=== PATIENT | male | born 1940 | race Caucasian/White ===

== ENCOUNTER → 2016-12-08 | Outpatient (CLI) | payer OTHER ==
[~2016-12-08] MED LIST: ASCA500 PO; CALC600T9 PO; FINA5TAB4 PO; GABA-113 PO; GATI0.5S OP; MULT-506 PO; PRED1SUS3; TAMS0.4C59 PO
== END | disposition home or self-care (01) ==
LOC: C.LABSPEC 15:08
PROVIDERS: ATTEND Internal Medicine
DX: Z12.11 Encounter for screening for malignant neoplasm of colon (principal)

== ENCOUNTER 2022-06-18 07:41 | Observation (INO) ==
--- NOTE | 2022-05-18 12:23 | PAT Medication Instructions ---
Medication Instructions Date of Service May 18, 2022 Home Medications ascorbic acid (vitamin C) 500 mg tablet 500 mg PO HS calcium carbonate 390 mg calcium (1,000 mg) tablet (Coral Calcium) 390 mg PO HS magnesium aspartate HCl 61 mg (615 mg) tablet,delayed release 61 mg PO HS magnesium oxide 500 mg capsule 500 mg PO HS multivitamin (Daily Multi-Vitamin tablet) 1 tab PO HS finasteride 5 mg tablet 5 mg PO HS omeprazole 20 mg tablet,delayed release 20 mg PO HS tadalafil 5 mg tablet (Cialis) 5 mg PO HS Take evening before surgery ascorbic acid (vitamin C) 500 mg tablet 500 mg PO HS calcium carbonate 390 mg calcium (1,000 mg) tablet (Coral Calcium) 390 mg PO HS magnesium aspartate HCl 61 mg (615 mg) tablet,delayed release 61 mg PO HS magnesium oxide 500 mg capsule 500 mg PO HS multivitamin (Daily Multi-Vitamin tablet) 1 tab PO HS finasteride 5 mg tablet 5 mg PO HS omeprazole 20 mg tablet,delayed release 20 mg PO HS tadalafil 5 mg tablet (Cialis) 5 mg PO HS OTHERWISE NOTHING TO EAT OR DRINK AFTER MIDNIGHT Other Notes If you have any questions please call us at [phone] or [phone] or [phone] or [phone]
--- NOTE | 2022-05-22 10:56 | Anesthesiology Consultation ---
Date of Service May 22, 2022 Assessment & Plan (1) Encounter for pre-operative examination: Plan - will attempt to obtain any available records from 11/2013 lung surgery at [facility] including post-op chest CT. - s/p left pneumonectomy: Pre-op CXR 05/22/22: Volume loss with complete opacification of left hemithorax redemonstrated compatible with prior pneumonectomy. Unchanged mild linear scarring of the right upper lobe. Leftward midline shift of the mediastinal structures. Compensatory hyperinflation of the right lung. Pt reports surgery 11/[address] [facility]. Leblanc advised obtaining records including post-op chest CT if available as this information will assist assigned anesthesiologist DOS to evaluate if pt can receive a peripheral nerve block for shoulder surgery or if this will need to be avoided from pulmonary surgery history - Outpatient joint pathway: Per surgeon and patient, plan for outpatient joint program. Case discussed in detail with Dr. Leblanc who advised patient is not an acceptable candidate for Same Day Joint Program from anesthesia perspective. This was discussed with pt and his at [facility] appt. They verbalized understanding, Bibi with surgeon's office made aware. Booking changed to overnight. Chart Review Chart Review: Pending: Refer to Additional Notes / Consult section and Patient seen in Pre Admission Testing Teaching & Discussion Pre-Anesthesia Teaching/Discussion Notes: Instructed NPO after midnight before surgery, except medications with 15 cc of water. Medication instructions provided according to the [facility] guidelines. History Surgery Operation Date: 06/18/22 08:50 Proposed Procedures p Right Reverse Total Shoulder Arthroplasty - Abdias Mccann DO Height/Weight Height: 5 ft 2 in Weight: 59.2 kg Allergies Allergy/AdvReac Type Severity Reaction Status Date / Time No Known Allergies Allergy Unknown Verified 05/16/22 14:12 Medications Home Medications Medication Instructions Recorded Confirmed Last Taken ascorbic acid (vitamin C) 500 mg 500 mg PO HS 11/12/19 05/16/22 Unknown tablet calcium carbonate 390 mg calcium 390 mg PO HS 11/12/19 05/16/22 Unknown (1,000 mg) tablet (Coral Calcium) magnesium aspartate HCl 61 mg (615 61 mg PO HS 11/12/19 05/16/22 Unknown mg) tablet,delayed release magnesium oxide 500 mg capsule 500 mg PO HS 11/12/19 05/16/22 Unknown multivitamin (Daily Multi-Vitamin 1 tab PO HS 11/12/19 05/16/22 Unknown tablet) finasteride 5 mg tablet 5 mg PO HS 05/16/22 05/16/22 Unknown omeprazole 20 mg tablet,delayed 20 mg PO HS 05/16/22 05/16/22 Unknown release tadalafil 5 mg tablet (Cialis) 5 mg PO HS 05/16/22 05/16/22 Unknown Past Medical History Medical History (Updated 05/22/22 @ 11:27 by Lauren Odell PA-C) GERD (gastroesophageal reflux disease) controlled, stable per pt History of lung cancer s/p left pneumonectomy Prostatitis hx Patient denies h/o stroke, seizures, heart attack, heart failure, DM, HTN, or blood clots. Exercise / Class Metabolic Activity II 4-5 Yardwork/Stairs/Walk up hill (denies CP or SOB with 1 FOS) Past Family History Family History Brother Myocardial infarction Mother Liver cancer Father Prostate cancer Past Surgical History Surgical History History of lung surgery lt lung removed History of shoulder surgery lt. History of total hip replacement rt. Hx of cataract extraction bilat. Hx of colonoscopy Past Anesthesia History No Hx of Anesthesia Complications and No Family Hx of Anesthesia Complications History of PONV No Hx of PONV and No Hx of Motion Sickness Social History Smoking Status: Former smoker Do You Dip or Chew Tobacco: No Smoking End Date: 40 years ago Hx Alcohol Use: Yes Alcohol type: beer alcohol intake frequency: a few times a week Hx Substance Use: No substance use type: does not use Review of Systems Snoring, denies witnessed apneas. Patient denies chest pain, shortness of breath, dyspnea on exertion, fever, chills, cough, wheezing, or palpitations. Physical Exam Vital Signs Vitals BP 132/70 P 68 TEMP 98.4 SP02 98% on RA RESP 18 Physical Full cervical extension range of motion without pain TMD 3.5 finger breadths Mallampati Score 1 Dentition: intact, removable partial plate-upper; denies chipped or loose teeth, caps/crowns Lungs: normal respiratory effort. Clear throughout to auscultation, no adventitious breath sounds on right side (pt s/p left pneumonectomy) Cardiac: regular rate and rhythm, no murmurs noted Carotid arteries: negative bruit bilat Lab Results Anesthesia Preop Results Results Anesthesia Widget: WBC 5.05 K/ul (4.8-10.8) 05/22/22 Hgb 12.7 g/dl (14.0-18.0) L 05/22/22 Hct 37.1 % (40.1-51.0) L 05/22/22 Plt 230 K/uL (130-400) 05/22/22 Na 140 mmol/L (136-145) 05/22/22 K 4.1 mmol/L (3.5-5.1) 05/22/22 Cl 104 mmol/L (98-107) 05/22/22 CO2 30 mmol/L (21-32) 05/22/22 BUN 10 mg/dl (6-23) 05/22/22 Creat 0.62 mg/dl (0.6-1.4) 05/22/22 Glucose Level 86 mg/dl (70-99(Fasting)) 05/22/22 PT 11.2 Seconds (9.0-12.0) 05/22/22 PTT 28.6 Seconds (21.0-31.0) 05/22/22 INR 1.1 (0.9-1.1) 05/22/22 Blood Type A Positive 05/22/22 Antibody Screen NEGATIVE 05/22/22 Testing Laboratory Results Mild anemia H&H . No previous comparison. Discussed in detail with Dr. Foss who advised pt did not need further evaluation or testing prior to surgery from his standpoint. Bibi with surgeon's office made aware. Electrocardiogram Date: 05/22/22 NSR, rate 62 bpm Rightward axis Chest X-Ray Date: 05/22/22 Volume loss with complete opacification of left hemithorax redemonstrated compatible with prior pneumonectomy. Unchanged mild linear scarring of the right upper lobe. Leftward midline shift of the mediastinal structures. Compensatory hyperinflation of the right lung. No pneumothorax, large pleural effusion or airspace consolidation typical for pneumonia. Degenerative changes of the shoulders and spine. Chronic left rib deformities again noted. IMPRESSION: 1. No acute processes of the chest. 2. Prior left-sided pneumonectomy with compensatory hyperinflation of the right lung. COVID-19 Risk Screen Screening Information COVID-19 Screen Date: 05/22/22 Exposure 21 Days Family/Household +COVID Last 21 Days: No Exposure 10 Days Any COVID Exposure Last 10 Days: No Symptoms Last 10 Days Experienced COVID Sx Last 10 Days: No + COVID 0-90 Days COVID + in Last 0-90 Days: No
[~2022-06-18 07:41] MED LIST changes: +ACETAMINOPHEN 500 MG TAB PO SCH; -ASCA500 PO; +BUPIVACAINE 0.5 % 5 MG/1 ML PF 10ML VIAL ONE; -CALC600T9 PO; +FAMOTIDINE 20 MG TAB PO SCH; -FINA5TAB4 PO; -GABA-113 PO; +GABAPENTIN 300 MG CAP PO SCH; -GATI0.5S OP; +LR 15ML/HR IV SCH; +LR 60ML/HR IV SCH; -MULT-506 PO; +ORTHO JOINT MIX INFIL SCH; -PRED1SUS3; -TAMS0.4C59 PO; +TRANEXAMIC ACID 1,000 MG **IV Intra-op IV SCH; +TRANEXAMIC ACID 1,000 MG **IV Pre-op IV SCH; +ceFAZolin 2000MG 2,000 MG/15 ML SYR IV SCH; +dexAMETHasone 4 MG TAB PO SCH
[2022-06-18] MEDS ORDERED: MIDAZOLAM HCL 1 MG/ML 2ML VIAL ONE (08:54)
[2022-06-18] MEDS ORDERED: fentaNYL citrate 100 MCG/2 ML VIAL ONE ×2 (08:55→12:32)
[2022-06-18] MEDS ORDERED: ROCURONIUM BROMIDE 10 MG/ML 5 ML VIAL IV ONE (08:57)
[2022-06-18] MEDS ORDERED: ONDANSETRON INJ 2 MG/ML 2 ML VIAL ONE (08:57)
[2022-06-18] MEDS ORDERED: PROPOFOL IV EMULSION 10 MG/ML 20 ML VIAL IV ONE (08:57)
[2022-06-18] MEDS ORDERED: LIDOCAINE 2% 20 MG/ML 5 ML SYR IV ONE (08:58)
--- NOTE | 2022-06-18 09:49 | History & Physical Bridge Note ---
Date of Service June 18, 2022 History & Physical Bridge Note I have examined the patient, reviewed the History & Physical and in the interval since the performance of the History & Physical I have noted the following changes of clinical significance: no changes noted
[2022-06-18] MEDS ORDERED: ORTHO JOINT ANESTHETIC ONE (10:12)
--- NOTE | 2022-06-18 12:07 | Operative Report ---
PG Post Operative Report Pre & Post Diagnosis Operation Date: 06/18/22 10:30 Pre-Op Diagnosis: Cuff tear arthropathy of the right shoulder Post-Op Diagnosis: Cuff tear arthropathy of the right shoulder I identified the patient and participated in the time-out.: Yes Procedure Operation Date: 06/18/22 10:30 Actual Procedures p Right Reverse Total Shoulder Arthroplasty(Right) - Abdias Mccann DO Surgeon Abdias Mccann DO Sales Clerk Supervisor Ruiz Giang PA-C Estimated Blood Loss 150 Findings Consistent with Post-Op Diagnosis Specimens Right humeral head Description of Procedure Implants used: I used a Biomet Comprehensive reverse total shoulder arthroplasty system with a size 14 press fit micro humeral stem, a +3 offset humeral tray and a standard humeral bearing, a 25 mm small augment baseplate with a 6.5 mm central screw and superior and inferior locking screws, and a size 36 mm eccentric glenosphere. Jr arrived at [facility] for the above procedure. He was seen in the preoperative holding area and the operative extremity was identified and signed. He was given a preoperative antibiotic, TXA, and an interscalene nerve block. He was taken back to the operating room, laid on table in supine position, and put under general anesthesia. He was then put into the beachchair position. The shoulder was then prepped and draped in sterile fashion. A timeout was done and the patient and the operative extremity was properly identified. A deltopectoral approach was used. Dissection was taken down through the fascia and the deltoid was retracted laterally and the conjoined tendon was retracted medially. The anterior shoulder was exposed. The biceps tendon was chronically torn. The subscapularis was then directly released off the lesser tuberosity with a peel technique. The inferior capsule was released and the humeral head was dislocated. A canal finding reamer was sent down the center of the humeral canal. Sequential reaming up to a size 14 reamer was done. Off that reamer, a proximal humeral resection guide was placed. The proximal humerus was resected at 135 o f inclination and 25 of retroversion. Osteophytes were then removed and the glenoid was exposed. Time was spent doing a complete capsular and labral release. The glenoid guide was then placed in the inferior aspect of the glenoid. A 3.2 mm Steinmann pin was then placed into the glenoid vault at 10 of inclination. The glenoid baseplate was then reamed. The final size 25 mm small augment ba seplate was then impacted in the place. A 6.5 mm central screw was then placed followed by superior and inferior locking screws. A 36 eccentric glenosphere was then impacted into place. Surrounding soft tissues were then injected with 100 cc an orthopedic pain control cocktail. The proximal humerus was then exposed. Sequential broaching of the humerus up to a size 14 broach was done. Off that broach a +3 offset humeral tray was trialed. The shoulder was then reduced, brought through a full range of motion, and felt to be stable. The shoulder was then dislocated and the broach was removed. The final size 14 micro press-fit humeral stem was then impacted into place. A standard humeral bearing was then snapped onto a +3 offset humeral tray. The humeral tray was then impacted onto the humeral stem. The shoulder was once again reduced, brought through a full range of motion, and felt to be stable. The subscapularis was then tenodesed back to the lesser tuberosity with transosseous FiberWire sutures and side to side sutures with the arm in 45 of external rotation. A dilute betadyne lavage was then done for 3 minutes. The joint was then irrigated with normal saline solution. Hemostasis was obtained. The interval was closed with 2-0 Vicryl suture. The skin was then closed with 2-0 Vicryl and cassandra. A Silverlon dressing was placed and the arm was rested in a regular arm sling. He was then extubated and transferred to a hospital bed. He taken to the postanesthesia care unit in stable condition. He tolerated the procedure well. Abdias Amaya PA-C, was present for the entire procedure. He was critical for patient positioning, prepping, draping, retraction exposure, wound closure and application of sterile dressing. I attest to the content of the Intraoperative Record and any orders documented therein. Any exceptions are noted below.
[2022-06-18] MEDS ORDERED: ATROPINE SULFATE 0.1 MG/ML 10ML SYR IV PRN (12:33)
[2022-06-18] MEDS ORDERED: ePHEDrine sulfate 50 MG/ML AMP IV PRN (12:33)
[2022-06-18] MEDS: fentaNYL citrate 100 MCG/2 ML VIAL IV PRN ×4 (12:33→13:00)
[2022-06-18] MEDS ORDERED: HYDROmorphone INJ 2 MG/ML SYR/VIAL IV PRN (12:33)
[2022-06-18] MEDS ORDERED: PROMETHAZINE HCL 6.25 MG in SODIUM CHLORIDE 0.9% 50 ML IV PRN (12:33)
[2022-06-18] MEDS ORDERED: ONDANSETRON INJ 2 MG/ML 2 ML VIAL IV PRN ×2 (12:33→14:00)
--- NOTE | 2022-06-18 12:48 | XRay Report ---
XR shoulder RT min 2V routine CLINICAL HISTORY: Post shoulder surgery TECHNIQUE: 3 views of the right shoulder were obtained. Comparison: Comparison is made to chest radiograph 05/22/2022 FINDINGS: Patient is status post shoulder arthroplasty with expected postsurgical changes including soft tissue swelling and subcutaneous emphysema. No periarticular lucency or hardware fracture is seen. Degenera tive changes are seen in the thoracic spine. IMPRESSION: Expected postoperative appearance status post placement of shoulder arthroplasty. ACT 112: Negative or not required by law. Electronically signed by: Asa Sosa M.D. 06/18/2022 12:46 PM
[2022-06-18] MEDS ORDERED: MAGNESIUM HYDROXIDE SUSP 30 ML UDC PO PRN (14:00)
[2022-06-18] MEDS ORDERED: bisacodyL 10 MG SUPP PR PRN (14:00)
[2022-06-18] MEDS ORDERED: oxyCODONE HCL IR 5 MG TAB (IMMEDIATE RELEASE) PO PRN (14:00)
[2022-06-18] MEDS ORDERED: METOCLOPRAMIDE HCL INJ 5 MG/ML 2 ML VIAL IV PRN (14:00)
[2022-06-18] MEDS ORDERED: NALOXONE HCL 0.4 MG/1 ML VIAL/CARP IV PRN (14:00)
[2022-06-18] MEDS ORDERED: SODIUM CHLORIDE 0.9% 1000ML 1,000 ML IV SCH (14:00)
[2022-06-18] MEDS: KETOROLAC TROMETHAMINE 15 MG/ML VIAL IV SCH ×2 (15:54→23:00)
[2022-06-18] MEDS: ceFAZolin 2000MG 2,000 MG/15 ML SYR IV SCH (18:14)
[2022-06-18] MEDS: DOCUSATE SODIUM 100 MG CAP PO SCH (20:25)
[2022-06-18] MEDS ORDERED: NON-FORMULARY MEDICATION (Multivitamin [Daily Multi-Vitamin] tablet) PO SCH (21:00)
[2022-06-18] MEDS ORDERED: CALCIUM 600MG + VIT D 400 IU TAB PO SCH (21:00)
[2022-06-18] MEDS ORDERED: SENNA 8.6 MG TAB PO SCH (21:00)
[2022-06-18] MEDS ORDERED: MAGNESIUM CHLORIDE W/CALCIUM 64MG DELAYED REL TAB PO SCH (21:00)
[2022-06-18] MEDS ORDERED: FINASTERIDE 5 MG TAB PO SCH (21:00)
[2022-06-18] MEDS ORDERED: NON-FORMULARY MEDICATION (Magnesium Oxide 500 mg capsule) PO SCH (21:00)
[2022-06-18] MEDS ORDERED: ASCORBIC ACID 500 MG TAB PO SCH (21:00)
[2022-06-18] MEDS ORDERED: PANTOprazole 40 MG TAB PO SCH (21:00)
[2022-06-19] MEDS: ceFAZolin 2000MG 2,000 MG/15 ML SYR IV SCH (03:21)
[2022-06-19] MEDS: KETOROLAC TROMETHAMINE 15 MG/ML VIAL IV SCH ×2 (05:28→10:09)
--- NOTE | 2022-06-19 07:11 | Orthopedic Progress Note ---
Date of Service June 19, 2022 Assessment & Plan (1) Status post reverse total replacement of right shoulder: Overall he is doing very well. He is not having much pain in the right shoulder. He will be seen by physical therapy today for ambulation and range of motion exercises. He can be discharged home later today. He will follow-up with orthopedics in 2 weeks. Fidelia Norris was seen and examined at bedside this morning. Overall he is doing very well. He is not having any pain in the right shoulder. He has been up and ambulating around his room. He has no complaints.. Review of Systems All systems reviewed & are unremarkable except as noted in HPI & below. Physical Exam On physical examination of the right shoulder, the dressing is clean and dry. He is wearing his sling as instructed. The nerve block has mostly worn off.. Results & Data Results & Data Laboratory Results . Diagnostic Findings Postoperative x-rays of the right shoulder show the prosthesis to be in anatomic alignment without any evidence of fracture, screws, or loosening.. PG Care Time/CCT Total # of Minutes Spent Total Time Spent with Patient: Total time spent is greater than 50% in coordination of care (as documented) at patient's floor/unit and/or counseling patient: Coding Level of Care Code 04695 Post Operative Follow-Up Diagnoses Status post reverse total replacement of right shoulder Z96.611
--- NOTE | 2022-06-19 07:12 | Discharge Summary ---
Date of Service June 19, 2022 Principal Diagnosis Same as "Discharge Diagnosis" noted below under Discharge Instructions. Discharge Exam On physical examination of the right shoulder, the dressing is clean and dry. He is wearing his sling as instructed. The nerve block has mostly worn off.. Discharge Data Procedures Performed Operation Date: 06/18/22 10:30 Actual Procedures p Right Reverse Total Shoulder Arthroplasty(Right) - Abdias Mccann DO Ordered Studies 06/18/22 05:00 US - OR guided needle placemen Routine Hospital Course (1) Status post reverse total replacement of right shoulder: On June 18, 2022 Jr arrived at [facility] and underwent a right reverse shoulder replacement without complication. He had a general anesthetic and a right interscalene nerve block. Postoperatively he was placed in a sling and transferred to the general orthopedic floors. His hospital course was uneventful. On postop day #1, his vital signs were stable and his pain was well controlled. He was able to participate well with physical therapy doing ambulation and range of motion exercises. He was then discharged home. He will follow-up with orthopedics in 2 weeks. PG Care Time/CCT Total # of Minutes Spent Total Time Spent with Patient: Total time spent is greater than 50% in coordination of care (as documented) at patient's floor/unit and/or counseling patient: Discharge Plan Discharge Items Patient Disposition: Home - Home Health Services Reason For Visit: DJD Right Shoulder Discharge Diagnosis: Right reverse shoulder replacement Activity: Per Instructions section Non-emergency contact: Surgeon Call non-emergency contact if: your wound has increased redness and your wound has increased drainage Follow-up/Referrals: Dejon Jackson DO [Primary Care Provider] - Diet: Regular Addtl Attending Provider Instructions: Activity and Therapy Recommendations: * If you are using [facility] then therapy will be provided at your home until they feel you have accomplished all of your goals. * If you are using [facility] then Physical Therapy will be provided until they feel you are ready to start Outpatient Physical Therapy. * If you are not using home therapy then Outpatient Physical Therapy should start about 3-5 days from your day of surgery. Therapy will last about 8-12 weeks * Wear your sling for 3 weeks, unless otherwise instructed. You may remove your sling to shower and to dress, but otherwise, you should be in your sling at all times, including while sleeping * The shoulder replacement is very stable and you can use your hand while in the sling * You were shown a series of exercises in the hospital. Do these exercises daily including the exercises you were shown in physical therapy. Medications: * Narcotic You will likely be sent home from the hospital with a prescription for the narcotic pain medication that worked best throughout your stay. * Other medications may be prescribed for specific circumstances. If you have any questions, please call the office at . * Resume previous home medications unless otherwise instructed Dressing Care: Leave the Silverlon dressing in place for 7 days. After 7 days you may remove the dressing. If the incision is not draining then you may leave the cassandra open to air. If there is a little bit of drainage or if the cassandra are getting stuck on your clothing then cover the incision with a dry dressing. The cassandra will be removed at your 2 week follow-up appointment. Showering: You may shower with the Silverlon dressing in place. Do not let the shower spray hit the dressing directly. Pat the Silverlon dressing dry. If the dressing becomes wet underneath, then simply remove the dressing. Keep the incision dry until you are 7 days out from the day of surgery. After 7 days you may remove the Silverlon dressing and shower with the cassandra exposed. Let soapy water run over the cassandra and pat them dry. Do not scrub or soak the incision. Things To Watch For: * Drainage from the incision site that occurs more than one week after your surgery. * Increased redness at the incision site. * Fever above 102 degrees Fahrenheit. * Unusual chest pain or shortness of breath. * Call [facility] at with any of the above problems Follow-Up Visit: Follow-up with Dr. Mccann's PA (Abdias Amaya) 2-3 weeks after your day of surgery. He will remove your cassandra and answer any questions. If you have any additional questions or concerns, Dr Mccann is usually in the office at the same time and will be available An appointment was probably scheduled when you signed-up for surgery in the office. If you have any questions call More detailed instructions as well as Frequently Asked Questions were provided in a folder by our office when you signed-up for surgery. Please review these instructions when you get home. If you have any further questions or concerns, please feel free to call the office at [phone] Pending Studies at Discharge: No Stand-Alone Forms: My [facility] Medications and DC Order Prescriptions: New oxycodone-acetaminophen 5-325 mg tablet 1 tab PO Q6H PRN (Reason: pain) Qty: 30 0RF Continued magnesium oxide 500 mg capsule 500 mg PO HS ascorbic acid (vitamin C) 500 mg tablet 500 mg PO HS multivitamin [Daily Multi-Vitamin] Tablet 1 tab PO HS magnesium aspartate HCl 61 mg (615 mg) tablet,delayed release (DR/EC) 61 mg PO HS Coral Calcium 390 mg calcium (1,000 mg) tablet 390 mg PO HS omeprazole 20 mg Tablet,Delayed Release (Dr/Ec) 20 mg PO HS finasteride 5 mg tablet 5 mg PO HS Discharge Orders: Discharge Order (Routine); Ordered 06/19/22 Ordered By: Abdias Mccann Admission Data Admit Date/Time: 06/18/22 12:27 Attending Provider: Abdias Mccann Admit Provider: Miguel Angel Giang Primary Care Provider: Dejon Jackson
[2022-06-19] MEDS ORDERED: dexAMETHasone 4 MG TAB PO SCH (08:00)
[2022-06-19] MEDS ORDERED: MULTIVITAMIN TAB PO SCH (09:00)
[2022-06-19] MEDS: DOCUSATE SODIUM 100 MG CAP PO SCH (10:08)
== END 2022-06-19 11:40 | disposition home or self-care (01) ==
LOC: ASU 07:41 → 3E 12:27 → INTOOBSV 12:27